=== PATIENT | female | born 1960 | race Caucasian/White ===

== ENCOUNTER 2019-06-03 19:26 | Emergency (ER) | payer BC ==
[~2019-06-03] VITALS: Ht 172.7 cm; Wt 77.1 kg
[2019-06-03] MEDS ORDERED: ZOLPIDEM TARTRA10 MG PO (20:26)
[2019-06-03] MEDS ORDERED: ALPRAZOLAM0.5 M1 PO (20:26)
[2019-06-03] MEDS ORDERED: IBU800 MG PO (20:46)
== END 2019-06-03 21:00 | disposition home or self-care (01) ==
LOC: ER 19:26
DX: S93.401A Sprain of unspecified ligament of right ankle, initial encounter (principal); X58.XXXA Exposure to other specified factors, initial encounter
CPT/HCPCS: 73610; 99283-25; A9270